=== PATIENT | female | born 1985 | race Caucasian/White ===

== ENCOUNTER 2016-07-17 08:20 | Emergency (ER) | payer OTHER ==
[~2016-07-17] VITALS: Ht 165.1 cm; Wt 49.0 kg
[~2016-07-17 08:20] MED LIST: ACET-1256 PO; ASCO-63 PO; BIOT1CAP8 PO; CHOL1000 PO; CYAN100T PO; MULT1CAP3 PO; PENI-82 PO
[2016-07-17 08:28] VITALS: TEMP 36.8; Ht 165.1 cm; Wt 49.0 kg
[2016-07-17] MEDS ORDERED: IBUP-1050 PO (09:02)
--- NOTE | 2016-07-17 09:02 | EMERGENCY ROOM VISIT NOTE ---
History Report prepared by Bronwyn: Carlos Graves Under the Supervision of: Dr. Jhonatan Oliver M.D. First contact with patient: 08:43 Chief Complaint: BACK PAIN Stated Complaint: SWOLLEN HANDS,NOSE BLEED, BACK PAIN FOR A WEEK History of Present Illness The patient is a 30 year old female who presents to the Emergency Room with complaints of persistent hand pain for the past week. The patient notes that both of her hands have been swelling and hurting. She describes the discomfort as tingling and throbbing. The discomfort is worse at night. She notes that yesterday she was struggling to pick things up because of the discomfort and she was struggling to work. 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 The patient also complains of nose bleeds for the past week. She notes she has no history of nose bleeds before. She denies feet swelling or other neurological symptoms, urinary symptoms, chest pain, shortness of breath, rash, or neck pain at this time. Source of History: patient Onset: the past week Position: hand (bilateral) Quality: tingling, other (throbbing) Timing: other (persistent) Modifying Factors (Worsening): other (at nighttime) Associated Symptoms: No SOB, No chest pain, No neck pain, No rash, No urinary symptoms Note: Other associated symptoms: nose bleeds Denies: feet swelling, other neurological symptoms Review of Systems See HPI for pertinent positives & negatives. A total of 10 systems reviewed and were otherwise negative. Past Medical & Surgical Medical Problems: (1) Nephrolithiasis (2) Ovarian cyst (3) Pyelonephritis (4) Renal colic on left side Surgical Problems: (1) History of hernia repair (2) Status post laparoscopic surgery Old medical records were reviewed. Nurse's notes were reviewed and I agree with. Family History Patient reports no known family medical history. Social History Smoking Status: Current Every Day Smoker Alcohol Use: none Drug Use: none Marital Status: other Housing Status: lives alone Occupation Status: unemployed Current/Historical Medications Scheduled Ibuprofen (Advil), 200-600 MG PO Q4H Scheduled PRN Oxycodone Immediate Rel Tab (Roxicodone Ir), 1-2 TAB PO Q4H PRN for Severe Pain Allergies Coded Allergies: Ketorolac (Unverified Allergy, Severe, RESTLESS LEGS, 07/17/16) Naproxen (Unverified Allergy, Unknown, stomach upset, 07/17/16) Tramadol (Unverified Allergy, Unknown, blurred vision, 07/17/16) Physical Exam Vital Signs Date Time Temp Pulse Resp B/P Pulse Ox O2 Delivery O2 Flow Rate FiO2 07/17/16 12:13 68 18 103/79 99 Room Air 07/17/16 10:22 66 104/40 99 Room Air 07/17/16 08:28 36.8 97 18 124/83 95 Room Air Physical Exam General: Non-ill appearing young female, no acute distress. HEENT: Normal cephalic atraumatic. Pupils are equal round and reactive to light. Extraocular movements are intact. Oropharynx is pink with moist mucous membranes. No swelling of the mouth lips or tongue. Nares: no active bleeding Neck: Supple with a midline trachea. No meningeal signs or stiffness, no JVD or bruits. No Stridor. Chest: Clear to auscultation bilaterally. No wheezes or rhonchi. No increased work of breathing. Heart: regular rate and rhythm. Abdomen: Soft nontender, nondistended without rebound guarding or rigidity. Extremities: Hands are mildly diffusely tender bilaterally. No redness or warmth. Normal motor and tendon function. No calf tenderness or assymetry Spine/Back. Non tender to palpation. No CVA tenderness Skin: Good turgor without rashes. Neurologic exam: Cranial nerves two through 12 are intact. Motor and sensation are intact and symmetrical throughout. Medical Decision & Procedures Laboratory Results 07/17/16 09:05 Red Blood Count 3.78, Mean Corpuscular Volume 84.4, Mean Corpuscular Hemoglobin 29.1, Mean Corpuscular Hemoglobin Concent 34.5, Mean Platelet Volume 9.5, Neutrophils (%) (Auto) 48.0, Lymphocytes (%) (Auto) 35.0, Monocytes (%) (Auto) 12.7, Eosinophils (%) (Auto) 3.7, Basophils (%) (Auto) 0.4, Neutrophils # (Auto ) 2.34, Lymphocytes # (Auto) 1.71, Monocytes # (Auto) 0.62, Eosinophils # (Auto ) 0.18, Basophils # (Auto) 0.02 07/17/16 09:05 Test 07/17/16 09:05 07/17/16 09:06 White Blood Count 4.88 K/uL (4.8-10.8) Red Blood Count 3.78 M/uL (4.2-5.4) Hemoglobin 11.0 g/dL (12.0-16.0) Hematocrit 31.9 % (37-47) Mean Corpuscular Volume 84.4 fL (80-100) Mean Corpuscular Hemoglobin 29.1 pg (25-34) Mean Corpuscular Hemoglobin Concent 34.5 g/dl (32-36) Platelet Count 216 K/uL (130-400) Mean Platelet Volume 9.5 fL (7.4-10.4) Neutrophils (%) (Auto) 48.0 % Lymphocytes (%) (Auto) 35.0 % Monocytes (%) (Auto) 12.7 % Eosinophils (%) (Auto) 3.7 % Basophils (%) (Auto) 0.4 % Neutrophils # (Auto) 2.34 K/uL (1.4-6.5) Lymphocytes # (Auto) 1.71 K/uL (1.2-3.4) Monocytes # (Auto) 0.62 K/uL (0.11-0.59) Eosinophils # (Auto) 0.18 K/uL (0-0.5) Basophils # (Auto) 0.02 K/uL (0-0.2) RDW Standard Deviation 44.4 fL (36.4-46.3) RDW Coefficient of Variation 14.3 % (11.5-14.5) Immature Granulocyte % (Auto) 0.2 % Immature Granulocyte # (Auto) 0.01 K/uL (0.00-0.02) Anion Gap 6.0 mmol/L (3-11) Est Creatinine Clear Calc Drug Dose 103.6 ml/min Estimated GFR () 141.2 Estimated GFR (Non- 121.9 BUN/Creatinine Ratio 14.2 (10-20) Calcium Level 8.8 mg/dl (8.5-10.1) Total Bilirubin 0.3 mg/dl (0.2-1) Direct Bilirubin 0.1 mg/dl (0-0.2) Aspartate Amino Transf (AST/SGOT) 24 U/L (15-37) Alanine Aminotransferase (ALT/SGPT) 25 U/L (12-78) Alkaline Phosphatase 43 U/L (45-117) Total Protein 6.4 gm/dl (6.4-8.2) Albumin 3.6 gm/dl (3.4-5.0) Lipase 106 U/L (73-393) Thyroid Stimulating Hormone (TSH) 0.796 uIu/ml (0.300-4.500) Urine Color DK YELLOW Urine Appearance CLOUDY (CLEAR) Urine pH 8.0 (4.5-7.5) Urine Specific [place] 1.026 (1.000-1.030) Urine Protein NEG (NEG) Urine Glucose (UA) NEG (NEG) Urine Ketones NEG (NEG) Urine Occult Blood NEG (NEG) Urine Nitrite NEG (NEG) Urine Bilirubin NEG (NEG) Urine Urobilinogen NEG (NEG) Urine Leukocyte Esterase TRACE (NEG) Urine WBC (Auto) 1-5 /hpf (0-5) Urine RBC (Auto) 5-10 /hpf (0-4) Urine Hyaline Casts (Auto) 1-5 /lpf (0-5) Urine Epithelial Cells (Auto) >30 /lpf (0-5) Urine Bacteria (Auto) 1+ (NEG) Date/Time Source Procedure Growth Status 07/17/16 09:06 Urine , Clean Catch Urine Culture - Final MORE THAN THREE TYPES OF ORGANISMS AK... Complete Laboratory studies as stated above per my review. ED Course 0846: Past medical records reviewed. The patient was evaluated in room A11, and a complete history and physical examination were performed. 1007: At this time, I reevaluated the patient and she was resting comfortably. 1155: Upon reevaluation, the patient is resting. I discussed the results and treatment plan with her. She verbalized agreement of the treatment plan. The patient was discharged home. Medical Decision Differential diagnoses include infection, anemia, hematologic problem, electrolyte or metabolic abnormality, and thyroid disease. This patient comes in as described above. She complains of bilateral hand pain. She also some chronic back pain which she says is not causing her too much trouble today. 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 Her hands on exam are not red or warm or swollen. She has normal neurologic status. She has no evidence to suggest neurovascular compromise or tendon problems. There is no skin abnormalities. Multiple blood tests was obtained. Her nose is not bleeding at this point. She's had no fever or white count suggest infection. She's no acute electrolyte or metabolic abnormalities. Her TSH is normal and this is unlikely related to her thyroid. It may be more musculoskeletal related to her work. She has been using ibuprofen and I told her to continue to use this. She says she needs something stronger, I gave her very small prescription (#10) of OxyIR just to take at night if the pain is really bad. I told her not to take for drinking, driving, working. She was encouraged to return if increasing pain, numbness was, any new problems or concerns a follow-up with her regular doctor for recheck. Impression Primary Impression: Bilateral hand pain Additional Impression: Anterior epistaxis Scribe Attestation The scribe's documentation has been prepared under my direction and personally reviewed by me in its entirety. I confirm that the note above accurately reflects all work, treatment, procedures, and medical decision making performed by me. Departure Information Dispostion Home / Self-Care Prescriptions Oxycodone Immediate Rel Tab (ROXICODONE IR) 5 Mg Tab 1-2 TAB PO Q4H Y for Severe Pain, #10 TAB Prov: Jhonatan Oliver M.D. 07/17/16 Referrals No Doctor, Assigned (PCP) Forms HOME CARE DOCUMENTATION FORM, IMPORTANT VISIT INFORMATION Patient Instructions My [facility] Additional Instructions Rest Drink plenty of fluids REturn if: worsening of symptoms, fever, increasing pain, numbness or weakness, any new problems Use ibuprofen 400 mg every 6 hours, take with food For more severe pain, use OxyIR 5 mg, one or 2 pills every 4-6 hours as needed OxyIR may make you drowsy and do not take before drinking, driving, working Do not take OxyIR with any other pain medications alcohol or sedating medications Follow up with her doctor this week for recheck Problem Qualifiers
[2016-07-17 09:21] LABS: BASO % 0.4 %; BASO ABS # 0.02 K/uL (0-0.2); COMPLETE YES; EOS % 3.7 %; HEMATOCRIT 31.9 % (37-47); IG% 0.2 %; LYMPH ABS # 1.71 K/uL (1.2-3.4); MEAN CELL VOLUME 84.4 fL (80-100); MEAN CORPUSCULAR HEMOGLOBIN 29.1 pg (25-34); MEAN CORPUSCULAR HGB CONC 34.5 g/dl (32-36); MEAN PLATELET VOLUME 9.5 fL (7.4-10.4); MONO % 12.7 %; PLATELET COUNT 216 K/uL (130-400); RED BLOOD COUNT 3.78 M/uL (4.2-5.4); WHITE BLOOD COUNT 4.88 K/uL (4.8-10.8)
[2016-07-17 09:29] LABS: URINE APPEARANCE CLOUDY (CLEAR); URINE BILIRUBIN NEG (NEG); URINE COLOR DK YELLOW; URINE EPITHELIAL CELL AUTO >30 /lpf (0-5); URINE NITRITE NEG (NEG); URINE SPECIFIC GRAVITY 1.026 (1.000-1.030); UROBILINOGEN NEG (NEG)
[2016-07-17 09:37] LABS: BUN/CREATININE RATIO 14.2 (10-20); CREATININE 0.62 mg/dl (0.60-1.20); POTASSIUM 3.8 mmol/L (3.5-5.1)
[2016-07-17 09:38] LABS: MANUAL MICROSCOPIC REQUIRED? NO; REVIEW REQ? NO
[2016-07-17 09:47] LABS: THYROID STIMULATING HORMONE 0.796 uIu/ml (0.300-4.500)
[2016-07-17 09:53] LABS: CALCIUM 8.8 mg/dl (8.5-10.1)
[2016-07-17] MEDS ORDERED: OXYC1TAB3 PO (12:00)
[2016-07-17 12:13] VITALS: BP 103/79; PULSE 68; O2SAT 99
== END 2016-07-17 12:14 | disposition home or self-care (01) ==
LOC: C.EDB 08:22 → C.EDA 12:14
DX: M79.641 Pain in right hand (principal); M79.642 Pain in left hand; R04.0 Epistaxis; F17.210 Nicotine dependence, cigarettes, uncomplicated